=== PATIENT | male | born 1995 | race American Indian/Alaskan Native ===

== ENCOUNTER 2020-05-04 14:37 | Emergency (ER) | payer OTHER, SELFPAY ==
[2020-05-04 16:23] VITALS: BP 112/68; PULSE 77; RESP 18; TEMP 36.7; O2SAT 100; BMI 27.3
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
[2020-05-04 17:04] VITALS: BP 123/87; PULSE 82; RESP 20; TEMP 36.9; O2SAT 97
== END 2020-05-04 17:19 | disposition home or self-care (01) ==
PROVIDERS: Emergency Provider Emergency Medicine
DX: S39.012A Strain of muscle, fascia and tendon of lower back, initial encounter (principal); S16.1XXA Strain of muscle, fascia and tendon at neck level, initial encounter; V43.52XA Car driver injured in collision with other type car in traffic accident, initial encounter; Y93.89 Activity, other specified; Y92.414 Local residential or business street as the place of occurrence of the external cause; Y99.9 Unspecified external cause status
CPT/HCPCS: 99283

== ENCOUNTER 2022-09-26 16:13 | Emergency (ER) | payer MEDICAID, SELFPAY ==
[2022-09-26 16:41] VITALS: BP 121/76; PULSE 87; RESP 16; TEMP 37; O2SAT 99; BMI 28.3
--- NOTE | 2022-09-26 16:47 | ED_ITS ---
HPI - General Adult General Chief complaint: Skin/Abscess/Foreign Body <SRAVAN Hernandez - Last Filed: 09/26/22 16:49> Stated complaint: pain from crack.. to back, cyst? <SRAVAN Hernandez - Last Filed: 09/26/22 16:49> Time Seen by Provider: 09/26/22 20:00 <SRAVAN Hernandez - Last Filed: 09/26/22 16:49> Source: patient <SRAVAN Saeed - Last Filed: 09/26/22 20:28> Mode of arrival: ambulatory <SRAVAN Saeed - Last Filed: 09/26/22 20:28> Limitations: no limitations <SRAVAN Saeed - Last Filed: 09/26/22 20:28> History of Present Illness HPI narrative: This is a 27-year-old male presenting with pain between buttocks, times a week worsening. Patient reports he has a history of pilonidal cyst, he has had them drained multiple times in the past. He reports this 1 is very painful. He has not seen General surgery for this. Patient denies numbness, tingling, fevers, chills, chest pain, shortness of breath, headache, vision changes, dizziness and weakness. Not currently on antibiotics. <SRAVAN Saeed - Last Filed: 09/26/22 20:28> Related Data Home medications: Previous Rx's Medication Instructions Recorded Lidoderm 5 % topical patch 1 patch topical DAILY #1 ea 05/04/20 (lidocaine) cyclobenzaprine 10 mg tablet 10 mg PO TID PRN muscle spasm #10 05/04/20 tabs naproxen 500 mg tablet 500 mg PO BID PRN pain #20 tabs 05/04/20 cephalexin 500 mg tablet 500 mg PO Q6H 10 days #40 tabs 09/26/22 ketorolac 10 mg tablet 10 mg PO TID PRN pain 5 days #15 09/26/22 tabs <SRAVAN Hernandez - Last Filed: 09/26/22 16:49> Allergies/adverse reactions: Allergies Allergy/AdvReac Type Severity Reaction Status Date / Time No Known Allergies Allergy Verified 09/26/22 16:41 [No Known Allergies*] <SRAVAN Hernandez - Last Filed: 09/26/22 16:49> Review of Systems Review of Systems: Constitutional : No Weight loss, No Fever, No Chills, No Fatigue, No Malaise ENT/Mouth : No sore throat, No Rhinorrhea Eyes: No Eye Pain, No Swelling, No Redness Cardiovascular : No Chest Pain, No SOB, No Dyspnea on Exertion, No Orthopnea, No Edema, No Palpitations Respiratory : No Cough, No Sputum, No Wheezing Gastrointestinal : No Nausea, No Vomiting, No Diarrhea, No Constipation, No abdominal Pain, No Hematochezia, No Melena Genitourinary : No Dysuria, No Urinary Frequency, No Hematuria, Musculoskeletal : No joint pain, No Myalgias, No Joint Swelling Skin : No Skin Lesions, No rash, + abscess Neuro : No Weakness, No Numbness, No Dizziness, No Headache Psych : No Anxiety/Panic, No Depression All other systems reviewed and are negative <SRAVAN Saeed - Last Filed: 09/26/22 20:28> Yes all other systems are reviewed and are negative <SRAVAN Saeed - Last Filed: 09/26/22 20:28> PMFSH Past Medical History Attestation statement: The following information was validated with the patient. <SRAVAN Saeed - Last Filed: 09/26/22 20:28> Source: old records reviewed and nursing notes reviewed <SRAVAN Saeed - Last Filed: 09/26/22 20:28> Medical History: Medical History No known health problems <SRAVAN Hernandez - Last Filed: 09/26/22 16:49> Surgical History: Surgical History No history of previous surgery <SRAVAN Hernandez - Last Filed: 09/26/22 16:49> Social History Social History: Social History Advance Directives: No Advance Directives Information Provided: No <SRAVAN Hernandez - Last Filed: 09/26/22 16:49> Physical Exam ED Vital Signs: Vital Signs - 24 hr 09/26/22 16:41 Temperature 98.6 F Pulse Rate 87 Respiratory Rate 16 Blood Pressure 121/76 Pulse Oximetry 99 Oxygen Delivery Method Room Air BMI result Body Mass Index 28.3 <SRAVAN Henrandez - Last Filed: 09/26/22 16:49> Vital Signs - 24 hr 09/26/22 16:41 Temperature 98.6 F Pulse Rate 87 Respiratory Rate 16 Blood Pressure 121/76 Pulse Oximetry 99 Oxygen Delivery Method Room Air BMI result Body Mass Index 28.3 vss <SRAVAN Saeed Last Filed: 09/26/22 20:28> Appearance: Alert.? Oriented X3.? No acute distress.? Head: Normocephalic, atraumatic, no step-offs or deformities Eyes: Pupils equal, round and reactive to light.? ENT: Pharynx normal.? Neck: Normal inspection.? Neck supple.? CVS: Normal heart rate and rhythm.? Pulses normal.? Respiratory: No respiratory distress.? Breath sounds normal.? Abdomen: Soft and nontender.? Skin: Skin warm and dry.? Normal skin color.? Normal skin turgor.?+ 2cm X 2cm pilonidal cyst b/t buttocks w/ some fluctuance, erythema and warmth. Extremities: No lower extremity edema.? No calf ttp. 5/5 strength to bilateral upper and lower extremities Neuro: Oriented X 3.? No motor deficit.? No sensory deficit. CN 2-12 intact <SRAVAN Saeed Last Filed: 09/26/22 20:28> Course Course Course Narrative: RME performed by Tresa White PA-C. Patient is a 27 year old male presenting to the emergency department with a pilonidal abscess. Patient has had these multiple times and needs them drained every so often. Patient has not seen a general surgeon for these. Patient placed back in the waiting room pending room availability. <SRAVAN Hernandez Last Filed: 09/26/22 16:49> Reevaluation(s) Reevaluation #1: Fine-needle aspiration 5 cc of purulence/serosanguineous fluid removed successfully done at the bedside, patient tolerated procedure well. No complications. Dressing applied afterwards. Patient will be discharged home on Keflex. Will have him follow-up with General surgery. Educated patient on diagnosis and treatment plan, answered all question, patient verbalizes understanding. At this time patient will be discharged home, advised to return with new or worsening symptoms. Educated on worrisome signs and symptoms and when to return. At this time I feel comfortable discharge home. <SRAVAN Saeed - Last Filed: 09/26/22 20:28> Time: 20:04 <SRAVAN Saeed - Last Filed: 09/26/22 20:28> Medications Administered Discontinued Medications Generic Name Dose Route Start Last Admin Trade Name Freq PRN Reason Stop Dose Admin Ketorolac Tromethamine 30 mg 09/26/22 20:05 09/26/22 20:24 Ketorolac Tromethamine 15 Mg/Ml Vial IM 09/26/22 20:06 30 mg ONCE ONE Administration Lidocaine HCl 5 ml 09/26/22 20:00 09/26/22 20:24 Lidocaine Hcl 2 % Mpf 5 Ml Vial SUBCUT 09/26/22 20:01 5 ml ONCE ONE Administration <SRAVAN Hernandez - Last Filed: 09/26/22 16:49> Medications Administered Discontinued Medications Generic Name Dose Route Start Last Admin Trade Name Freq PRN Reason Stop Dose Admin Ketorolac Tromethamine 30 mg 09/26/22 20:05 09/26/22 20:24 Ketorolac Tromethamine 15 Mg/Ml Vial IM 09/26/22 20:06 30 mg ONCE ONE Administration Lidocaine HCl 5 ml 09/26/22 20:00 09/26/22 20:24 Lidocaine Hcl 2 % Mpf 5 Ml Vial SUBCUT 09/26/22 20:01 5 ml ONCE ONE Administration <SRAVAN Saeed - Last Filed: 09/26/22 20:28> Medical Decision Making Medical Decision Making [facility] Narrative: 2000 27-year-old male presents with recurrent pilonidal cyst worsening the past week. Physical examination significant for 2cm X 2cm pilonidal cyst b/t buttocks w/ some fluctuance, erythema and warmth. History and physical examination concerning for recurrent pilonidal cyst overlying cellulitis. Unlikely necrotizing infection, erysipelas. Plan fine-needle aspiration, will discharge patient home on antibiotics <SRAVAN Saeed - Last Filed: 09/26/22 20:28> Differential Diagnosis Differential Diagnoses: The differential diagnosis associated with the presentation includes <SRAVAN Saeed - Last Filed: 09/26/22 20:28> History and physical examination concerning for recurrent pilonidal cyst overlying cellulitis. Unlikely necrotizing infection, erysipelas. <SRAVAN Saeed - Last Filed: 09/26/22 20:28> Admission/Observation Consideration of admission/observation: Escalation of care including admission/observation considered <SRAVAN Saeed - Last Filed: 09/26/22 20:28> Core Measures AMI core measures followed: Yes <SRAVAN Saeed - Last Filed: 09/26/22 20:28> Measure exclusions: not indicated <SRAVAN Saeed - Last Filed: 09/26/22 20:28> Critical Care Time Critical Care Time Critical Care Time: No <SRAVAN Saeed - Last Filed: 09/26/22 20:28> Discharge Plan Discharge Clinical Impression: Pilonidal cyst, Cellulitis <SRAVAN Hernandez - Last Filed: 09/26/22 16:49> Patient Disposition: Home, Self-Care <SRAVAN Hernandez - Last Filed: 09/26/22 16:49> Instructions: Pilonidal Cyst (ED), Cellulitis (ED), Warm Compress or Soak (ED), Pilonidal Cyst Excision (DC) <SRAVAN Hernandez - Last Filed: 09/26/22 16:49> Additional Instructions: Take your medications as prescribed. If you were prescribed antibiotics today, it is important that you take your medication to their entirety, do not skip any doses, do not finish them early. Follow-up with your primary care provider this week. Please call and schedule an appointment with General surgery as this appears to be a recurrent process. Return to the emergency department with new or worsening symptoms. Such as fevers, chills, chest pain, shortness of breath, nausea, vomiting, dizziness, headache, vision changes, lethargy In case of emergency call 911 Apply warm compresses to the area 4 to 5 times a day. Toradol has been sent to your pharmacy, you tolerated this well in the department. Please take this as prescribed do not take this with ibuprofen, or other NSAIDs, do not mix this with alcohol. Side effects of this medication including increased risk for bleeding and possible kidney injury. <SRAVAN Hernandez - Last Filed: 09/26/22 16:49> Prescriptions: New cephalexin 500 mg tablet 500 mg PO Q6H 10 Days Qty: 40 0RF ketorolac 10 mg tablet 10 mg PO TID PRN (Reason: pain) 5 Days Qty: 15 0RF Rx Instructions: Tolerated IM in the department No Action cyclobenzaprine 10 mg tablet 10 mg PO TID PRN (Reason: muscle spasm) Qty: 10 0RF lidocaine [Lidoderm] 5 % adhesive patch,medicated 1 patch topical DAILY Qty: 1 0RF Rx Instructions: leave on most painful area for up to 12 hrs naproxen 500 mg tablet 500 mg PO BID PRN (Reason: pain) Qty: 20 0RF <SRAVAN Hernandez - Last Filed: 09/26/22 16:49> Referrals: [facility] General Surgeons [Provider Group] - 2 days Physician,None [Primary Care Provider] - 2 days <SRAVAN Hernandez - Last Filed: 09/26/22 16:49> Stand Alone Forms: Work/School Release <SRAVAN Hernandez - Last Filed: 09/26/22 16:49>
[2022-09-26] MEDS: Ketorolac Tromethamine 15 MG/ML VIAL 30 MG IM (20:24)
[2022-09-26] MEDS: Lidocaine HCl 2 % MPF 5 ML VIAL SUBCUT (20:24)
--- NOTE | 2022-09-26 20:25 | PC.NURSE ---
pt medicated by provider/PA student.
== END 2022-09-26 20:43 | disposition home or self-care (01) ==
PROVIDERS: Emergency Provider Emergency Medicine Emergency Medical Services
DX: L05.91 Pilonidal cyst without abscess (principal); Z79.899 Other long term (current) drug therapy
CPT/HCPCS: 10080; 96372; 99283; 99284; J1885

== ENCOUNTER 2023-01-14 13:23 | Emergency (ER) | payer MEDICAID, SELFPAY ==
[2023-01-14 14:14] VITALS: BP 117/70; PULSE 96; RESP 18; TEMP 37.8; O2SAT 96; BMI 26.5
--- NOTE | 2023-01-14 14:14 | ED_ITS ---
HPI - URI/Sore Throat General Chief Complaint: Fever Stated Complaint: fever, swollen throat Time Seen by Provider: 01/14/23 15:39 Source: patient, RN notes reviewed and old records reviewed Mode of arrival: ambulatory History of Present Illness HPI Narrative: 27-year-old male with no significant past medical history presenting to the ED complaining of fever, myalgias, nausea, and sore throat since yesterday. Admits girlfriend and daughter had similar symptoms. Denies ear pain, difficulty/inability to swallow, cough, SOB MD elicited complaint: sore throat Related Data Previous Rx's Medication Instructions Recorded Lidoderm 5 % topical patch 1 patch topical DAILY #1 ea 05/04/20 (lidocaine) cyclobenzaprine 10 mg tablet 10 mg PO TID PRN muscle spasm #10 05/04/20 tabs naproxen 500 mg tablet 500 mg PO BID PRN pain #20 tabs 05/04/20 cephalexin 500 mg tablet 500 mg PO Q6H 10 days #40 tabs 09/26/22 ketorolac 10 mg tablet 10 mg PO TID PRN pain 5 days #15 09/26/22 tabs penicillin V potassium 500 mg 500 mg PO BID 10 days #20 tabs 01/14/23 tablet Allergies Allergy/AdvReac Type Severity Reaction Status Date / Time No Known Allergies Allergy Verified 09/26/22 16:41 [No Known Allergies*] Review of Systems Review of Systems: Constitutional: +Fever, No Chills ENT/Mouth: No Ear Pain, No Nasal Congestion, No Sinus Pain, No Hoarseness, + sore throat, No Rhinorrhea, No Swallowing Difficulty Cardiovascular: No Chest Pain, No SOB Respiratory: No Cough, No Sputum, No Wheezing Gastrointestinal: + Nausea, No Vomiting, No Diarrhea, No Constipation, No Abdominal pain Musculoskeletal: No joint pain, + Myalgias, No Joint Swelling Skin: No Skin Lesions, No rash Neuro: No Weakness Yes all other systems are reviewed and are negative Constitutional: Constitutional: Reports as per [facility] Past Medical History Attestation statement: The following information was validated with the patient. Source: old records reviewed Medical History No known health problems Surgical History No history of previous surgery Social History Social History Advance Directives: No Advance Directives Information Provided: No Physical Exam Vital Signs: Vital Signs: Last Vital Signs Temp 100.1 F 01/14/23 14:14 Pulse 96 01/14/23 14:14 Resp 18 01/14/23 14:14 BP 117/70 01/14/23 14:14 Pulse Ox 96 01/14/23 14:14 O2 Del Method Room Air 01/14/23 14:14 BMI result Body Mass Index 26.5 Appearance: Alert. Oriented X3. No acute distress. HEENT: normal inspection Respiratory: No respiratory distress. Skin: Skin warm and dry. Normal skin color. Normal skin turgor. No rashes. Extremities: Neuro: Oriented X 3. No motor deficit. No sensory deficit. Const: General: cooperative, healthy appearing and no acute distress Orientation/consciousness: patient oriented x3 Limitations: no limitations HEENT: Head: Yes normal to inspection and Yes atraumatic Ears: hearing grossly normal bilaterally, external ears normal, TM's normal bilaterally and mastoids normal General nose exam: Normal external nose present Face and sinus: Yes normal facial exam Throat: Yes uvula midline, Yes abnormal tonsil (+ bilateral tonsillar erythema, swelling and exudates), No peritonsillar mass, No uvula laterally displaced and No uvular edema Eyes: General: appearance normal, both eyes and all related structures EOM: EOMs intact bilaterally Neck: Neck: Yes normal visual inspection, Yes full ROM, Yes no meningeal signs, Yes supple and No anterior neck swelling Resp: Effort & Inspection: normal respiratory effort, no respiratory distress and no stridor Auscultation: clear to auscultation bilaterally Cardio: Rate: regular rate Heart sounds: S1 normal heart sound present and S2 normal heart sound present Skin: Rashes: no rashes Wounds: no wounds Neuro: General: patient oriented x3, tone normal and no meningeal signs Gait exam (Neuro): Normal gait present Extrem: General: Yes normal to inspection Course Course Course Narrative: RME - 27 yo male presents to the ER for fever, nausea, and body aches. He states that his girlfriend had similar symptoms and was prescribed antibiotics. Plan: Covid and Strep -rapid strep positive Results discussed with patient including worrisome signs and symptoms and strict return precautions, and when to return to the emergency department. They verbalized understanding and feel safe for discharge at this time. Medical Decision Making Medical Decision Making [facility] Narrative: 27-year-old male with no significant past medical history presenting to the ED complaining of fever, myalgias, nausea, and sore throat since yesterday. On exam vital signs stable, NAD, nontoxic appearing, physical exam as above with bilateral tonsillar erythema with exudate and swelling. Uvula midline. Talking in complete sentences, no stridor. Concern for strep pharyngitis versus viral illness. Lower suspicion for mono. No evidence of [employer] Plan: COVID and rapid strep Please refer to course for remaining clinical decision making, interpretation of labs/imaging results, and discussions with consultants and/or family members. Differential Diagnosis Differential Diagnoses: The differential diagnosis associated with the presentation includes As above Admission/Observation Consideration of admission/observation: Escalation of care including admission/observation considered Lab Data [facility] Lab Attestation statement: I reviewed the patient's lab results. Labs: Lab Results 01/14/23 01/14/23 Range/Units 14:49 14:49 COVID-19 ([facility]) Negative (Negative) COVID-19 Clin Com See Note S. pyogenes GrpA LORY Positive A (Negative) External Record Review External record reviewed: Inpatient record, Office record, Outpatient record, Prior outpatient labs, Prior outpatient radiology, Primary care record and Outside ED record Tests considered The following testing was considered but not selected: As above Discharge Plan Discharge Clinical Impression: Acute streptococcal pharyngitis Patient Disposition: Home, Self-Care Instructions: Strep Throat (DC) Additional Instructions: You have strep throat. Gargle with warm saltwater Penicillin V is an antibiotic please take as prescribed Take Tylenol and Motrin for swelling/pain or fever If symptoms persist or worsen you develop persistent or worsening swelling or difficulty/inability to swallow return to the ED Prescriptions: New penicillin V potassium 500 mg tablet 500 mg PO BID 10 Days Qty: 20 0RF No Action cyclobenzaprine 10 mg tablet 10 mg PO TID PRN (Reason: muscle spasm) Qty: 10 0RF lidocaine [Lidoderm] 5 % adhesive patch,medicated 1 patch topical DAILY Qty: 1 0RF Rx Instructions: leave on most painful area for up to 12 hrs naproxen 500 mg tablet 500 mg PO BID PRN (Reason: pain) Qty: 20 0RF cephalexin 500 mg tablet 500 mg PO Q6H 10 Days Qty: 40 0RF ketorolac 10 mg tablet 10 mg PO TID PRN (Reason: pain) 5 Days Qty: 15 0RF Rx Instructions: Tolerated IM in the department Referrals: Physician,Unknown J [Primary Care Provider] - Stand Alone Forms: Work/School Release Interventions: ED Discharge Assessment Last Done: 01/14/23 16:20 Discharge Date/Time: 01/14/23 16:20
[2023-01-14 15:04] LABS: IDNOW Serial# 08D9AD1C
[2023-01-14 15:05] LABS: Strep A Nucleic Acid Positive (Negative)
[2023-01-14 15:07] LABS: IDNOW Serial# BCCEAD1C
[2023-01-14 15:08] LABS: COVID-19 Test Negative (Negative)
== END 2023-01-14 16:20 | disposition home or self-care (01) ==
PROVIDERS: Physician Assistant; Emergency Provider Emergency Medicine
DX: J02.0 Streptococcal pharyngitis (principal); R50.9 Fever, unspecified; J02.9 Acute pharyngitis, unspecified; R11.0 Nausea; M79.10 Myalgia, unspecified site; Z20.822 Contact with and (suspected) exposure to COVID-19
CPT/HCPCS: 87635; 87651; 99282; 99283

== ENCOUNTER 2024-02-08 09:51 | Emergency (ER) | payer OTHER, SELFPAY ==
[2024-02-08 09:58] VITALS: BP 120/72; PULSE 88; RESP 18; TEMP 36.7; O2SAT 100; BMI 25.1
--- NOTE | 2024-02-08 10:09 | ED_ITS ---
HPI - Dental/Oral General Chief complaint: Dental/Oral Stated complaint: Dental pain Time Seen by Provider: 02/08/24 10:09 Source: patient and RN notes reviewed Mode of arrival: ambulatory Limitations: no limitations History of Present Illness ED Provider: Aleyda Henriquez PA-C HPI Narrative: This is a 28-year-old male, with no known medical problems, who presents emergency department with complaints of left-sided facial pain and dental pain. He states that he has had ongoing left-sided dental pain for the last several months, states that his wisdom teeth are growing in however notes that over the last several days the pain has increased. He applied topical in his that it that he found at the pharmacy to the tooth which provided him with some relief. No fevers or chills. No difficulty swallowing. No shortness a breath. He has a dental appointment scheduled for March. No other complaints or concerns at this time. MD Complaint: tooth pain and tooth injury Location: Tooth # (18) Teeth map: 2 1. Onset (ago): month(s) Duration: worsening Severity: moderate Relieving factors: NSAIDs Exacerbating factors: chewing Context: history of dental caries Treatment prior to arrival: topical analgesic Related Data Previous Rx's ?Medication ?Instructions ?Recorded Lidoderm 5 % topical patch 1 patch topical DAILY #1 ea 05/04/20 (lidocaine) cyclobenzaprine 10 mg tablet 10 mg PO TID PRN muscle spasm #10 05/04/20 tabs naproxen 500 mg tablet 500 mg PO BID PRN pain #20 tabs 05/04/20 cephalexin 500 mg tablet 500 mg PO Q6H 10 days #40 tabs 09/26/22 ketorolac 10 mg tablet 10 mg PO TID PRN pain 5 days #15 09/26/22 tabs penicillin V potassium 500 mg 500 mg PO BID 10 days #20 tabs 01/14/23 tablet acetaminophen 500 mg tablet 500 mg PO Q6H PRN pain #30 tabs 02/08/24 (Tylenol Extra Strength) amoxicillin 875 mg-potassium 1 tab PO BID 7 days #14 tabs 02/08/24 clavulanate 125 mg tablet ibuprofen 600 mg tablet 600 mg PO Q6H PRN pain #30 tabs 02/08/24 Allergies Allergy/AdvReac Type Severity Reaction Status Date / Time No Known Allergies Allergy Verified 02/08/24 10:01 [No Known Allergies*] Review of Systems 2 Review of Systems: Yes all other systems are reviewed and are negative Constitutional: Constitutional: Reports as per [facility] Past Medical History Attestation statement: The following information was validated with the patient. Medical History No known health problems Surgical History No history of previous surgery Physical Exam 2 Vital Signs: Vital Signs: Last Vital Signs Temp 98.0 F 02/08/24 09:58 Pulse 88 02/08/24 09:58 Resp 18 02/08/24 09:58 BP 120/72 02/08/24 09:58 Pulse Ox 100 02/08/24 09:58 O2 Del Method Room Air 02/08/24 09:58 BMI result Body Mass Index 25.1 Const: General: cooperative, comfortable and no acute distress O rientation/consciousness: patient oriented x3 Limitations: no limitations HEENT: Head: Yes normal to inspection, Yes normocephalic and Yes atraumatic Ears: hearing grossly normal bilaterally and TM's normal bilaterally General nose exam: Normal external nose present Face and sinus: Yes normal facial exam Mouth: Normal oral and palatal mucosa present, oropharynx normal and moist mucous membranes Teeth image: 1. Tooth 18., with dental decay noted, with tenderness palpation along the tooth, no surrounding gingival erythema, edema, fluctuance. No drainage. Throat: Yes posterior oropharynx normal Eyes: General: appearance normal, both eyes and all related structures E yelids: Yes eyelids normal Conjunctivae: conjunctivae normal Sclerae: s clerae normal Pupils: Equal, round and reactive pupils present EOM: EOMs intact bilaterally Neck: Neck: Yes normal visual inspection, Yes full ROM and Yes no lymphadenopathy Lymphatic: no lymphadenopathy noted Chest: Chest palpation & inspection: normal inspection of the chest Resp: Effort & Inspection: normal respiratory effort and able to speak in complete sentences Auscultation: clear to auscultation bilaterally, no crackles, no rales, no rhonchi and no wheezes Cardio: Rate: regular rate Rhythm: regular rhythm Heart sounds: S1 normal heart sound present and S2 normal heart sound present GI: Inspection: Yes normal to inspection Skin: General skin exam: no rashes or lesions noted Trauma: no lacerations or abrasions Wounds: no wounds Neuro: General: patient oriented x3 and moves all extremities Cranial nerves: Yes Equal, round and reactive pupils present Extrem: General: Yes normal to inspection Right upper extremity: normal to inspection Left upper extremity: normal to inspection Right lower extremity: normal to inspection Left lower extremity: normal to inspection Medical Decision Making Medical Decision Making [facility] Narrative: This is a 28-year-old male who presents emergency department with complaints of left-sided facial pain and dental pain for the last several days. On arrival, vital signs within normal limits. He is tenderness palpation along tooth 18. No surrounding gingival erythema or edema. No fluctuance. No evidence of dental abscess. Able to open and close jaw without difficulty. No difficulty swallowing. Differential diagnoses include dental abscess, dental decay, dental fracture. Will start antibiotics, ibuprofen and Tylenol. Advised to return with any new or worsening symptoms. He will follow-up with his dentist for further management. He understands and agrees with plan. Patient stable for discharge Differential Diagnosis Differential Diagnoses: The differential diagnosis associated with the presentation includes See above Lab Data [facility] Lab Attestation statement: I reviewed the patient's lab results. Radiology Impression Discussion of test interpretation with radiology: I have reviewed the radiologist's reading. External Record Review External record reviewed: Inpatient record, Office record, Outpatient record, Prior outpatient labs, Prior outpatient radiology, Primary care record and Outside ED record Discharge Plan Discharge Clinical Impression: Toothache Patient Disposition: Home, Self-Care Instructions: Toothache (ED) Additional Instructions: You were seen in the emergency department due to dental pain. Your tooth is broken, and may start to be infected, it is very important for you to follow-up with your dentist. And placing you on an antibiotic, finish the entire course even if your feeling better. Alternate between ibuprofen and Tylenol as needed for pain and symptoms. If any new or worsening symptoms occur including but not limited to fevers, chills, worsening pain, please return for evaluation. Prescriptions: New amoxicillin-pot clavulanate 875-125 mg tablet 1 tab PO BID 7 Days Qty: 14 0RF ibuprofen 600 mg tablet 600 mg PO Q6H PRN (Reason: pain) Qty: 30 0RF acetaminophen [Tylenol Extra Strength] 500 mg tablet 500 mg PO Q6H PRN (Reason: pain) Qty: 30 0RF No Action cyclobenzaprine 10 mg tablet 10 mg PO TID PRN (Reason: muscle spasm) Qty: 10 0RF lidocaine [Lidoderm] 5 % adhesive patch,medicated 1 patch topical DAILY Qty: 1 0RF Rx Instructions: leave on most painful area for up to 12 hrs naproxen 500 mg tablet 500 mg PO BID PRN (Reason: pain) Qty: 20 0RF cephalexin 500 mg tablet 500 mg PO Q6H 10 Days Qty: 40 0RF ketorolac 10 mg tablet 10 mg PO TID PRN (Reason: pain) 5 Days Qty: 15 0RF Rx Instructions: Tolerated IM in the department penicillin V potassium 500 mg tablet 500 mg PO BID 10 Days Qty: 20 0RF Print Language: Italian
[2024-02-08 10:32] VITALS: BP 120/72; PULSE 88; RESP 18; TEMP 36.7; O2SAT 100
== END 2024-02-08 10:32 | disposition home or self-care (01) ==
PROVIDERS: Emergency Provider Emergency Medicine
DX: K02.9 Dental caries, unspecified (principal)
CPT/HCPCS: 99282; 99283

== ENCOUNTER 2024-10-29 20:03 | Emergency (ER) | payer MEDICAID, SELFPAY ==
[2024-10-29 20:30] VITALS: BP 122/75; PULSE 74; RESP 16; TEMP 36.9; O2SAT 98; BMI 25.2
--- NOTE | 2024-10-29 20:32 | ED.GENADULT ---
HPI - General Adult General Chief complaint: Dental/Oral Stated complaint: tooth pain Time Seen by Provider: 10/29/24 20:33 Source: patient History of Present Illness HPI narrative: 29-year-old male presents for evaluation of complaining of left-sided dental pain. Patient states he was eating pork, raised and beans when it began to cause him pain. He has had a broken area previously. He reports placing a packing to the broken area of the tooth for discomfort. He has been taking ibuprofen with some relief. He denies any fevers chills nausea or vomiting. He has an appointment with his dentist on Thursday. Patient is otherwise feeling well. He has been eating and drinking normally. Related Data Previous Rx's ?Medication ?Instructions ?Recorded Lidoderm 5 % topical patch 1 patch topical DAILY #1 ea 05/04/20 (lidocaine) cyclobenzaprine 10 mg tablet 10 mg PO TID PRN muscle spasm #10 05/04/20 tabs acetaminophen 500 mg tablet 500 mg PO Q6H PRN pain #30 tabs 02/08/24 (Tylenol Extra Strength) ibuprofen 600 mg tablet 600 mg PO Q6H PRN pain #30 tabs 02/08/24 amoxicillin 875 mg-potassium 1 tab PO BID 7 days #14 tabs 10/29/24 clavulanate 125 mg tablet Allergies Allergy/AdvReac Type Severity Reaction Status Date / Time No Known Allergies Allergy Verified 10/29/24 20:31 [No Known Allergies*] Review of Systems ENT: Reports dental pain and Denies facial pain PMFSH Past Medical History Medical History No known health problems Surgical History No history of previous surgery Social History Social History Do you have a plan to hurt others: No Plan Physical Exam ED Vital Signs: Vital Signs - 24 hr 10/29/24 20:30 Temperature 98.5 F Pulse Rate 74 Respiratory Rate 16 Blood Pressure 122/75 Pulse Oximetry 98 Oxygen Delivery Method Room Air BMI result Body Mass Index 25.2 Const Other: Well-appearing in no acute distress. Speaks full clear sentences. HENMT Other: Oropharynx is moist. Teeth are in good repair. Tooth number 18 is partially broken on the buccal aspect. There is a whitish packing in place. There is no periapical erythema or edema. Full range motion of the mandible. No tongue edema or muffled voice. Tolerate secretions. Neck Other: No cervical lymphadenopathy Psych Appearance: grossly normal Medical Decision Making Medical Decision Making [facility] Narrative: 29-year-old male with pain to the left lower tooth. We will place on antibiotics. Patient to follow up with dentist at current appointment on Thursday. Reviewed all discharge instructions. No further questions at this time. Of note, it is is left lower tooth, number 18, despite triage note of left upper. No tenderness or current issues with any other dentition. Differential Diagnosis Differential Diagnoses: The differential diagnosis associated with the presentation includes Dental abscess Dental caries Broken dentition Dental infection Prescription Management I considered prescription management with: Antibiotic Discharge Plan Discharge Clinical Impression: Toothache, Dental caries Patient Disposition: Home, Self-Care Instructions: Toothache (ED) Additional Instructions: As discussed, Continue Tylenol and ibuprofen as directed. Take with food. Augmentin as directed. Finish all antibiotics. Follow up with your dentist at your current appointment on Thursday. Follow-up with your primary care provider. Call this week to schedule a follow-up appointment. Return to the emergency department if you have any worsening of symptoms, or any concerns. Get well soon! Prescriptions: New amoxicillin-pot clavulanate 875-125 mg tablet 1 tab PO BID 7 Days Qty: 14 0RF Discontinued naproxen 500 mg tablet 500 mg PO BID PRN (Reason: pain) Qty: 20 0RF cephalexin 500 mg tablet 500 mg PO Q6H 10 Days Qty: 40 0RF ketorolac 10 mg tablet 10 mg PO TID PRN (Reason: pain) 5 Days Qty: 15 0RF Rx Instructions: Tolerated IM in the department penicillin V potassium 500 mg tablet 500 mg PO BID 10 Days Qty: 20 0RF amoxicillin-pot clavulanate 875-125 mg tablet 1 tab PO BID 7 Days Qty: 14 0RF No Action cyclobenzaprine 10 mg tablet 10 mg PO TID PRN (Reason: muscle spasm) Qty: 10 0RF lidocaine [Lidoderm] 5 % adhesive patch,medicated 1 patch topical DAILY Qty: 1 0RF Rx Instructions: leave on most painful area for up to 12 hrs ibuprofen 600 mg tablet 600 mg PO Q6H PRN (Reason: pain) Qty: 30 0RF acetaminophen [Tylenol Extra Strength] 500 mg tablet 500 mg PO Q6H PRN (Reason: pain) Qty: 30 0RF Print Language: Portuguese
[2024-10-29 20:46] VITALS: BP 122/75; PULSE 74; RESP 16; TEMP 36.9; O2SAT 98
== END 2024-10-29 20:48 | disposition home or self-care (01) ==
PROVIDERS: Emergency Provider Emergency Medicine
DX: K02.9 Dental caries, unspecified (principal); K08.89 Other specified disorders of teeth and supporting structures
CPT/HCPCS: 99283

== ENCOUNTER 2024-11-02 17:24 | Emergency (ER) | payer MEDICAID, SELFPAY ==
--- NOTE | ~2024-11-02 | CT_ITS ---
CLINICAL HISTORY: unable to open mouth, L lower dental pain CT soft tissue neck with contrast Comparison: None Findings: Tonsils, adenoids and epiglottis are within normal limits. There is no prevertebral soft tissue swelling or fluid. Bilateral parotid and submandibular glands unremarkable. No significant adenopathy in the neck by size criteria. Airway midline without deviation or displacement. No foreign bodies are demonstrated. Visualized upper lungs and sinuses are clear. No acute bony abnormalities demonstrated. Impression: No significant abnormalities. This document has been electronically signed by: Gagan Guillory MD on 11/02/2024 21:29:58
[2024-11-02 17:47] VITALS: BP 132/84; PULSE 100; RESP 16; TEMP 37.5; O2SAT 98; BMI 25.0
--- NOTE | 2024-11-02 17:48 | ED_ITS ---
HPI - Dental/Oral General Chief complaint: Dental/Oral Stated complaint: tooth pain Time Seen by Provider: 11/02/24 22:23 Source: patient Mode of arrival: ambulatory Limitations: no limitations History of Present Illness ED Provider: HPI Narrative: Patient has been having pain in the left lower molar plan to see dentist for a root canal next week on antibiotics Augmentin and pain medication was seen here on 10/29 comes back as having pain in opening the mouth no fever no chills Related Data Previous Rx's ?Medication ?Instructions ?Recorded Lidoderm 5 % topical patch 1 patch topical DAILY #1 ea 05/04/20 (lidocaine) cyclobenzaprine 10 mg tablet 10 mg PO TID PRN muscle spasm #10 05/04/20 tabs acetaminophen 500 mg tablet 500 mg PO Q6H PRN pain #30 tabs 02/08/24 (Tylenol Extra Strength) ibuprofen 600 mg tablet 600 mg PO Q6H PRN pain #30 tabs 02/08/24 amoxicillin 875 mg-potassium 1 tab PO BID 7 days #14 tabs 10/29/24 clavulanate 125 mg tablet oxycodone 5 mg tablet 5 mg PO Q6H PRN pain #20 tabs 11/03/24 Allergies Allergy/AdvReac Type Severity Reaction Status Date / Time No Known Allergies Allergy Verified 11/02/24 17:50 [No Known Allergies*] Review of Systems 2 Review of Systems: Yes all other systems are reviewed and are negative PMFSH Past Medical History Medical History No known health problems Surgical History No history of previous surgery Social History Social History Alcohol intake: never Advance Directives: No Advance Directives Information Provided: Yes Physical Exam 2 Vital Signs: Vital Signs: Last Vital Signs Temp 99.5 F 11/03/24 00:20 Pulse 88 11/03/24 00:20 Resp 16 11/03/24 00:20 BP 112/66 11/03/24 00:20 Pulse Ox 98 11/03/24 00:20 O2 Del Method Room Air 11/03/24 00:20 BMI result Body Mass Index 25.0 Appearance: Alert. Oriented X3. No acute distress. ENT: Pharynx normal. Oral Mucosa moist no gum swelling masseter spasm was present no swelling of the tongue no swelling under the tongue nontender Neck: Normal inspection. Neck supple. CVS: Normal heart rate and rhythm. Pulses normal. Respiratory: No respiratory distress. Equal air entry bilateral, no wheezing/rales/rhonchi Abdomen: Soft and nontender. Bowel sounds are present, no mass palpable, no CVA tenderness Skin: Skin warm and dry. Normal skin color. Normal skin turgor. Extremities: No lower extremity edema. No calf tenderness Neuro: Oriented X 3. No motor deficit. Course Course Course Narrative: This is an RME: Additional HPI, ROS, PE not included below will be deferred to primary provider. RME assessment and note performed by: Aleyda Henriquez PA-C This is a 29-year-old male who presents emergency department with complaints of left lower dental pain. Patient unable to open his jaw has 2 mm. No obvious dental abscess noted however dental decay noted to the left lower dentition. Reports no fevers. Will start with labs, he will likely need diagnostic imaging however will defer to primary provider for further analysis and evaluation. He was seen on October 29, 2024 and was started on Augmentin which he has been taking without any relief. Plan: labs, further ER eval needed Medications Administered Discontinued Medications Generic Name Dose Route Start Last Admin Trade Name Freq PRN Reason Stop Dose Admin Iohexol 75 ml 11/02/24 20:38 11/02/24 20:39 Iohexol 350 Mg/Ml 100 Ml Infus..Btl IV 11/02/24 20:39 75 ml ONCE ONE Administration Ketorolac Tromethamine 30 mg 11/02/24 22:50 11/02/24 22:58 Ketorolac Tromethamine 30 Mg/Ml Vial IVPUSH 11/02/24 22:51 30 mg ONCE ONE Administration Morphine Sulfate 4 mg 11/02/24 22:51 11/02/24 22:58 Morphine Sulfate 4 Mg/Ml Cartridge IVPUSH 11/02/24 22:52 4 mg ONCE ONE Administration Protocol Medical Decision Making Medical Decision Making MDM Narrative: Patient with dental caries on antibiotics no signs of deeper infection CT scan of the neck was done which is also negative for any fluid collection or abscess patient was given pain medication was able to over the mouth and had fluids in the ER Differential Diagnosis Differential Diagnoses: The differential diagnosis associated with the presentation includes Trismus/abscess Lab Data [facility] Lab Attestation statement: I reviewed the patient's lab results. 11/02/24 19:47 11/02/24 19:47 Labs: Lab Results 11/02/24 Range/Units 19:47 WBC 8.8 (4.8-10.8) X10*3/uL RBC 4.86 (4.60-5.80) X10*6/uL Hgb 15.0 (14.0-18.0) g/dl Hct 43.4 (42.0-52.0) % MCV 89.3 (80.0-98.0) fL MCH 30.9 (27.0-33.0) pg MCHC 34.6 (31.0-36.0) g/dl RDW 11.5 (11.0-16.0) % Plt Count 366 (160-400) X10*3/uL MPV 9.8 (9.4-12.4) fL Immature Gran % (Auto) 0.2 (0.0-0.4) % Neut % (Auto) 75.7 H (45-73) % Lymph % (Auto) 15.7 L (20-40) % [place] % (Auto) 7.8 (2-11) % Eos % (Auto) 0.3 (0-4) % Baso % (Auto) 0.3 (0-2) % Lymph # (Auto) 1.4 (1.2-4.9) X10*3/uL [place] # (Auto) 0.7 (0.1-1.2) X10*3/uL Eos # (Auto) 0.0 (0.0-0.4) X10*3/uL Baso # (Auto) 0.0 (0.0-0.2) X10*3/uL Abs Immat Gran (auto) 0.02 (0.00-0.03) X10*3/uL Absolute Neuts (auto) 6.6 (2.0-8.3) x10*3/uL Absolute Nucleated RBC 0.000 (0.0-0.012) X10*3/uL Nucleated RBC % (auto) 0.0 (0.0-0.2) /100WBC Sodium 140 (135-145) mmol/L Potassium 4.8 (3.3-5.1) mmol/L Chloride 106 (96-108) mmol/L Carbon Dioxide 26 (22-29) mmol/L Anion Gap 13 (12-20) BUN 8 L (9-16) mg/dL Creatinine 0.58 (0.5-1.4) mg/dL Estim Creat Clear Calc 163.4 Estimated GFR > 60 Random Glucose 95 (60-115) mg/dL Calcium 10.4 H (8.4-10.2) mg/dL Total Bilirubin 1.0 (0.0-1.0) mg/dL Direct Bilirubin 0.3 (0.0-0.5) mg/dL AST 27 (5-37) U/L ALT 34 (0-40) U/L Alkaline Phosphatase 84 (39-117) U/L Total Protein 8.2 H (6.5-8.0) g/dL Albumin 4.5 (3.5-5.0) g/dL Radiology Impression Discussion of test interpretation with radiology: I have reviewed the radiologist's reading. Radiologist Impression: NAD Discharge Plan Discharge Clinical Impression: Toothache Patient Disposition: Home, Self-Care Instructions: Toothache (ED) Additional Instructions: Follow up with your dentist Continue antibiotics Your CT scan is negative for deeper abscess Apply ice pack for the muscle spasm Pain medication as prescribed Prescriptions: New oxycodone 5 mg tablet 5 mg PO Q6H PRN (Reason: pain) Qty: 20 0RF Rx Instructions: Partial Fill upon patient request. No Action cyclobenzaprine 10 mg tablet 10 mg PO TID PRN (Reason: muscle spasm) Qty: 10 0RF lidocaine [Lidoderm] 5 % adhesive patch,medicated 1 patch topical DAILY Qty: 1 0RF Rx Instructions: leave on most painful area for up to 12 hrs amoxicillin-pot clavulanate 875-125 mg tablet 1 tab PO BID 7 Days Qty: 14 0RF ibuprofen 600 mg tablet 600 mg PO Q6H PRN (Reason: pain) Qty: 30 0RF acetaminophen [Tylenol Extra Strength] 500 mg tablet 500 mg PO Q6H PRN (Reason: pain) Qty: 30 0RF Interventions: ED Discharge Assessment Last Done: 11/03/24 00:20 Discharge Date/Time: 11/03/24 00:21 Print Language: Maori
[2024-11-02 19:52] VITALS: BP 119/73; PULSE 80; RESP 16; TEMP 38.3; O2SAT 98
[2024-11-02 19:58] LABS: MANUAL DIFF FLAG NO
[2024-11-02 19:59] LABS: Basophils Percent Auto 0.3 % (0-2); Eosinophils Percent Auto 0.3 % (0-4); Hematocrit 43.4 % (42.0-52.0); Imm Gran Abs Auto 0.02 X10*3/uL (0.00-0.03); Imm Gran Pct Auto 0.2 % (0.0-0.4); Lymphocytes Absolute Auto 1.4 X10*3/uL (1.2-4.9); Lymphocytes Percent Auto 15.7 % (20-40); Mean Corpuscular HGB Conc 34.6 g/dl (31.0-36.0); Mean Corpuscular Hemoglobin 30.9 pg (27.0-33.0); Mean Corpuscular Volume 89.3 fL (80.0-98.0); Mean Platelet Volume 9.8 fL (9.4-12.4); Monocytes Absolute Auto 0.7 X10*3/uL (0.1-1.2); Monocytes Percent Auto 7.8 % (2-11); Neutrophils Absolute Auto 6.6 x10*3/uL (2.0-8.3); Neutrophils Percent Auto 75.7 % (45-73); Platelet Count 366 X10*3/uL (160-400); Red Blood Count 4.86 X10*6/uL (4.60-5.80); Red Cell Distribution Width 11.5 % (11.0-16.0); White Blood Count 8.8 X10*3/uL (4.8-10.8)
[2024-11-02 20:14] LABS: Alanine Aminotransferase 34 U/L (0-40); Albumin Level 4.5 g/dL (3.5-5.0); Alkaline Phosphatase 84 U/L (39-117); Anion Gap 13 (12-20); Aspartate Amino Transferase 27 U/L (5-37); Bilirubin Direct 0.3 mg/dL (0.0-0.5); Blood Urea Nitrogen 8 mg/dL (9-16); Calcium 10.4 mg/dL (8.4-10.2); Carbon Dioxide 26 mmol/L (22-29); Chloride 106 mmol/L (96-108); Creatinine Clr Calc Pharmacy 163.4; Estimated Glomerular Filt Rate > 60; Glucose Random 95 mg/dL (60-115); Potassium 4.8 mmol/L (3.3-5.1); Sodium 140 mmol/L (135-145); Total Protein 8.2 g/dL (6.5-8.0)
[2024-11-02] MEDS: iohexoL 350 MG/ML 100 ML INFUS..BTL 75 ML IV (20:39)
[2024-11-02 22:57] VITALS: BP 124/77; PULSE 89; RESP 16; TEMP 36.9; O2SAT 98
[2024-11-02] MEDS: Ketorolac Tromethamine 30 MG/ML VIAL IVPUSH (22:58)
[2024-11-02] MEDS: Morphine Sulfate 4 MG/ML CARTRIDGE IVPUSH (22:58)
[2024-11-03 00:20] VITALS: BP 112/66; PULSE 88; RESP 16; TEMP 37.5; O2SAT 98
== END 2024-11-03 00:21 | disposition home or self-care (01) ==
PROVIDERS: Physician Assistant Medical; Emergency Provider Internal Medicine
DX: K08.89 Other specified disorders of teeth and supporting structures (principal); R68.84 Jaw pain
CPT/HCPCS: 36415; 70491; 80048; 80076; 85025; 96374; 96375; 99284; J1885; J2270; Q9967

== ENCOUNTER → 2024-11-02 19:49 | Outpatient (BNV) | payer MEDICAID, SELFPAY | PROVIDERS: Visit Provider Radiology Diagnostic Radiology | DX: M26.52 Limited mandibular range of motion (principal); K08.89 Other specified disorders of teeth and supporting structures | CPT/HCPCS: 70491 ==

== ENCOUNTER 2024-11-17 09:49 | Emergency (ER) | payer MEDICAID, SELFPAY ==
--- NOTE | ~2024-11-17 | CT_ITS ---
EXAMINATION: CT FACIAL BONES WITHOUT CONTRAST CLINICAL INFORMATION: Left mandibular and temporomandibular joint pain, locked mouth. COMPARISON: None available. TECHNIQUE: Spiral CT imaging of the maxillofacial region and mandible performed in axial plane without contrast. Multiplanar reformatted images were constructed from the axial data set. This CT examination was performed using dose optimization techniques as appropriate, variously including the following: *Automated exposure control *Adjustment of mA and/or kV according to patient size (this includes techniques or standardized protocols for targeted exams where dose is matched to indication/reason for exam; i.e. extremities or head) *Use of iterative reconstruction technique FINDINGS: Evaluation for soft tissue subperiosteal abscess in the setting of suspected dental origin cellulitis is significantly limited. The TM joints are normally oriented. No dislocation or subluxation. 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 The nasal bones, nasal process, maxilla, orbits, zygomatic arches, pterygoid plates, and sphenoid bone are intact without fracture. There is mild right nasal septal deviation without spurring. Paranasal sinuses are normally pneumatized throughout. No paranasal sinus fractures. The mastoids and tympanic cavities are normally aerated. Within the left mandible, there is periapical lucency surrounding the root tips of tooth #18, with 9 mm erosion of the buccal cortex (series 8, image 66; series 2, image 63). The director of construction spaces demonstrate mild enlargement of the left pterygoid musculature, likely reflecting myositis. There is a prominent left level 2A lymph node present (series 3, image 43), with mild thickening of the left platysma muscle, and mild subcutaneous fat stranding/inflammation. Findings suggest dental source infection. Cannot assess for subperiosteal abscess without the benefit of IV contrast. CT/CT facial bones wo IV con IMPRESSION: 1. There is no dislocation or malalignment of the TM joints. 2. There is soft tissue inflammation of the left submandibular region with thickening of the platysma, a reactive level 2A lymph node, and enlargement of the left pterygoid muscle. This appears to be secondary to a 9 mm buccal cortex erosion/periapical lucency involving tooth #18. There are also carious lesions in this tooth. Cannot assess for subperiosteal abscess without the benefit of IV contrast. Electronically signed by: Mainor Bourgeois MD 11/17/2024 01:49 PM EDT
[2024-11-17 10:13] VITALS: BP 103/57; PULSE 108; RESP 16; TEMP 38.1; O2SAT 97; BMI 24.0
[2024-11-17] MEDS: 0.9 % Sodium Chloride 1,000 ML 999 ML IV (11:26)
[2024-11-17] MEDS: Ketorolac Tromethamine 15 MG/ML VIAL IVPUSH (11:26)
[2024-11-17 11:28] VITALS: RESP 18
[2024-11-17] MEDS: HYDROmorphone HCl 1 MG/ML SYRINGE IVPUSH (11:28)
[2024-11-17] MEDS: Piperacillin Sodium/Tazobactam 3.375 GM in 0.9 % Sodium Chloride 50 ML IV (11:29)
[2024-11-17 11:37] VITALS: BP 116/57; PULSE 98; RESP 16; TEMP 37.2; O2SAT 98
[2024-11-17 11:38] LABS: MANUAL DIFF FLAG NO
[2024-11-17 11:41] LABS: Basophils Percent Auto 0.3 % (0-2); Hematocrit 36.9 % (42.0-52.0); Hemoglobin 12.5 g/dl (14.0-18.0); Imm Gran Abs Auto 0.06 X10*3/uL (0.00-0.03); Imm Gran Pct Auto 0.8 % (0.0-0.4); Lymphocytes Absolute Auto 0.8 X10*3/uL (1.2-4.9); Mean Corpuscular HGB Conc 33.9 g/dl (31.0-36.0); Mean Corpuscular Hemoglobin 30.1 pg (27.0-33.0); Mean Corpuscular Volume 88.9 fL (80.0-98.0); Mean Platelet Volume 9.5 fL (9.4-12.4); Monocytes Absolute Auto 0.8 X10*3/uL (0.1-1.2); Monocytes Percent Auto 10.8 % (2-11); Neutrophils Absolute Auto 5.7 x10*3/uL (2.0-8.3); Neutrophils Percent Auto 77.1 % (45-73); Platelet Count 481 X10*3/uL (160-400); Red Blood Count 4.15 X10*6/uL (4.60-5.80); White Blood Count 7.4 X10*3/uL (4.8-10.8)
--- NOTE | 2024-11-17 11:47 | ED_ITS ---
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 Sullivan HPI Narrative: 29-year-old male presented with left facial pain x2 weeks, patient was seen in the emergency department twice in the last 20 days for similar symptoms had 2 courses of amoxicillin with a diagnosis of dental caries, patient was seen by a dentist today and was sent here because unable to open his mouth, patient is complaining of 10/10 pain in the left jaw area, declined any trauma, no history of jaw joint dislocation in the past, no fever, no chills, no facial swelling. Had soft tissue neck on 11/02/2024 that showed no significant abnormalities. Related Data Previous Rx's ?Medication ?Instructions ?Recorded Lidoderm 5 % topical patch 1 patch topical DAILY #1 ea 05/04/20 (lidocaine) cyclobenzaprine 10 mg tablet 10 mg PO TID PRN muscle spasm #10 05/04/20 tabs acetaminophen 500 mg tablet 500 mg PO Q6H PRN pain #30 tabs 02/08/24 (Tylenol Extra Strength) ibuprofen 600 mg tablet 600 mg PO Q6H PRN pain #30 tabs 02/08/24 amoxicillin 875 mg-potassium 1 tab PO BID 7 days #14 tabs 10/29/24 clavulanate 125 mg tablet oxycodone 5 mg tablet 5 mg PO Q6H PRN pain #20 tabs 11/03/24 clindamycin HCl 300 mg capsule 300 mg PO TID #20 caps 11/17/24 Allergies Allergy/AdvReac Type Severity Reaction Status Date / Time No Known Allergies Allergy Verified 11/17/24 10:14 [No Known Allergies*] Review of Systems 2 Review of Systems: All other systems are reviewed and are negative Constitutional: Reports as per HPI and Reports no additional constitutional complaints Eyes: Reports as per HPI and Reports no additional eye complaints Reports system reviewed and no additional complaints, except as documented Cardiovascular: Reports as per HPI and Reports no additional cardiovascular complaints Respiratory: Reports as per HPI and Reports no additional respiratory complaints Gastrointestinal: Reports as per HPI and Reports no additional gastrointestinal complaints Genitourinary: Reports no additional female genitourinary complaints Musculoskeletal: Reports no additional musculoskeletal complaints Skin/Breast: Reports system reviewed and no additional complaints, except as docu Psychiatric: Reports no additional psychiatric complaints Endocrine: Reports no additional endocrine complaints Hematologic/Lymphatic: Reports no additional hematologic/lymphatic complaints Allergic/Immunologic: Reports no additional allergic/immunologic complaints Reports system reviewed and no additional complaints, except as documented and Reports Abnormal speech present [facility] Past Medical History Medical History No known health problems Surgical History No history of previous surgery Social History Social History Alcohol intake: never Smoked in Last 30 Days: No Use of substances other than those prescribed or required for medical reasons: No Advance Directives: No Advance Directives Information Provided: Yes Do you have a plan to hurt others: No Plan Physical Exam 2 Vital Signs: Vital Signs: Last Vital Signs Temp 98.9 F 11/17/24 11:37 Pulse 98 11/17/24 11:37 Resp 16 11/17/24 11:37 BP 116/57 L 11/17/24 11:37 Pulse Ox 98 11/17/24 11:37 O2 Del Method Room Air 11/17/24 11:37 BMI result Body Mass Index 24.0 Vital signs have been reviewed and appear to be correct. Blood pressure elevated. Heart rate normal. Respiratory rate normal. Temperature normal. Oxygen saturation normal. Appearance: Alert. Oriented X3. No acute distress. Mouth exam: Unable to do dental exam patient is unable to fully open the mouth feels like it is locked. Head: Normal external exam. Normocephalic. Atraumatic. No [place] signs noted. No raccoon eyes noted Eyes: PERRLA. EOMI. Conjunctiva and sclera normal. Eyelids normal. ENT: TM's Normal. Pharynx normal. Uvula midline. Moist mucous membranes. No trismus noted. No drooling noted. No muffled voice noted. Neck: Normal inspection. Neck supple. FROM. No adenopathy. Thyroid Normal. No meningeal signs. No neck mass noted. CVS: Normal heart rate and rhythm. Heart sound normal. No murmurs noted. Pulses normal throughout. Respiratory: No respiratory distress. Painless inspiration. Breath sounds normal. No wheezes/rales/rhonchi noted. Chest nontender. No accessory muscle usage noted or decreased air movement noted. Abdomen: Soft and nontender. Bowel sounds normal in all 4 quadrants. No distention noted. No organomegaly noted. No visible injury noted. Back: No CVA tenderness. Full range of motion noted. Skin: Skin warm and dry. Normal skin color. Normal skin turgor. No rashes/lesions/lacerations noted. Extremities: No lower extremity edema. Extremities exhibit normal range of motion. Extremities nontender. Neuro: Oriented X 3. Cranial nerve exam: II-XII are grossly intact No motor deficit. No sensory deficit. Reflexes normal. Course Reevaluation(s) Reevaluation #1: 29-year-old male with a dental infection unable to wide open his mouth secondary to infection and inflammatory changes around the tooth, CT of the face showed no jaw dislocation, and confirmed diagnosis of dental origin infection originated from tooth 18. Will change antibiotic to clindamycin patient has been taking 2 courses of amoxicillin without relief of his symptoms. Patient has an appointment with his dentist tomorrow was instructed to discuss with his dentist to do his procedure under general anesthesia where he can open his mouth. No sepsis. Time: 14:40 Medications Administered Discontinued Medications Generic Name Dose Route Start Last Admin Trade Name Nikunjq PRN Reason Stop Dose Admin Acetaminophen 975 mg 11/17/24 14:26 11/17/24 14:30 Acetaminophen 325 Mg Tablet PO 11/17/24 14:27 975 mg ONCE ONE Administration Hydromorphone HCl 1 mg 11/17/24 11:16 11/17/24 11:28 Hydromorphone Hcl 1 Mg/Ml Syringe IVPUSH 11/17/24 11:17 1 mg ONCE ONE Administration Protocol Piperacillin Sod/Tazobactam 50 mls @ 100 mls/hr 11/17/24 11:16 11/17/24 12:49 Sod 3.375 gm/ Sodium Chloride IV 11/17/24 11:45 Infused ONCE ONE Infusion Sodium Chloride 1,000 mls @ 999 mls/hr 11/17/24 11:18 11/17/24 12:49 Ns IV 11/17/24 12:18 Infused .Q1H1M ONE Infusion Ketorolac Tromethamine 15 mg 11/17/24 11:16 11/17/24 11:26 Ketorolac Tromethamine 15 Mg/Ml Vial IVPUSH 11/17/24 11:17 15 mg ONCE ONE Administration Medical Decision Making Differential Diagnosis Differential Diagnoses: The differential diagnosis associated with the presentation includes (Dental abscess, jaw dislocation, dental infection, gingivitis, airway patency.) Admission/Observation Consideration of admission/observation: Escalation of care including admission/observation considered Lab Data MDM Lab Attestation statement: I reviewed the patient's lab results. 11/17/24 11:27 11/17/24 11:27 Labs: Lab Results 11/17/24 Range/Units 11:27 WBC 7.4 (4.8-10.8) X10*3/uL RBC 4.15 L (4.60-5.80) X10*6/uL Hgb 12.5 L (14.0-18.0) g/dl Hct 36.9 L (42.0-52.0) % MCV 88.9 (80.0-98.0) fL MCH 30.1 (27.0-33.0) pg MCHC 33.9 (31.0-36.0) g/dl RDW 11.0 (11.0-16.0) % Plt Count 481 H D (160-400) X10*3/uL MPV 9.5 (9.4-12.4) fL Immature Gran % (Auto) 0.8 H (0.0-0.4) % Neut % (Auto) 77.1 H (45-73) % Lymph % (Auto) 11.0 L (20-40) % [place] % (Auto) 10.8 (2-11) % Eos % (Auto) 0.0 (0-4) % Baso % (Auto) 0.3 (0-2) % Lymph # (Auto) 0.8 L (1.2-4.9) X10*3/uL [place] # (Auto) 0.8 (0.1-1.2) X10*3/uL Eos # (Auto) 0.0 (0.0-0.4) X10*3/uL Baso # (Auto) 0.0 (0.0-0.2) X10*3/uL Abs Immat Gran (auto) 0.06 H (0.00-0.03) X10*3/uL Absolute Neuts (auto) 5.7 (2.0-8.3) x10*3/uL Absolute Nucleated RBC 0.000 (0.0-0.012) X10*3/uL Nucleated RBC % (auto) 0.0 (0.0-0.2) /100WBC Sodium 139 (135-145) mmol/L Potassium 4.2 (3.3-5.1) mmol/L Chloride 104 (96-108) mmol/L Carbon Dioxide 27 (22-29) mmol/L Anion Gap 12 (12-20) BUN 10 (9-16) mg/dL Creatinine 0.85 (0.5-1.4) mg/dL Estim Creat Clear Calc 111.5 Estimated GFR > 60 Random Glucose 93 (60-115) mg/dL Lactic Acid 0.8 (0.5-2.0) mmol/L Calcium 9.2 D (8.4-10.2) mg/dL Total Bilirubin 1.3 H (0.0-1.0) mg/dL AST 20 (5-37) U/L ALT 11 (0-40) U/L Alkaline Phosphatase 74 (39-117) U/L Total Protein 7.5 (6.5-8.0) g/dL Albumin 4.1 (3.5-5.0) g/dL Independent Interpretation I performed an independent interpretation of an: CT Scan (Face:1. There is no dislocation or malalignment of the TM joints. 2. There is soft tissue inflammation of the left submandibular region with thickening of the platysma, a reactive level 2A lymph node, and enlargement of the left pterygoid muscle. This appears to be secondary to a 9 mm buccal daniela) Radiology Impression Discussion of test interpretation with radiology: I have reviewed the radiologist's reading. Discharge Plan Discharge Clinical Impression: Dental caries, Dental infection Patient Disposition: Home, Self-Care Instructions: Gingivostomatitis (ED) Additional Instructions: Show your dentist that is CT result: 1. There is no dislocation or malalignment of the TM joints. 2. There is soft tissue inflammation of the left submandibular region with thickening of the platysma, a reactive level 2A lymph node, and enlargement of the left pterygoid muscle. This appears to be secondary to a 9 mm buccal cortex erosion/periapical lucency involving tooth #18. There are also carious lesions in this tooth. Cannot assess for subperiosteal abscess. Prescriptions: New clindamycin HCl 300 mg capsule 300 mg PO TID Qty: 20 0RF No Action cyclobenzaprine 10 mg tablet 10 mg PO TID PRN (Reason: muscle spasm) Qty: 10 0RF lidocaine [Lidoderm] 5 % adhesive patch,medicated 1 patch topical DAILY Qty: 1 0RF Rx Instructions: leave on most painful area for up to 12 hrs amoxicillin-pot clavulanate 875-125 mg tablet 1 tab PO BID 7 Days Qty: 14 0RF oxycodone 5 mg tablet 5 mg PO Q6H PRN (Reason: pain) Qty: 20 0RF Rx Instructions: Partial Fill upon patient request. ibuprofen 600 mg tablet 600 mg PO Q6H PRN (Reason: pain) Qty: 30 0RF acetaminophen [Tylenol Extra Strength] 500 mg tablet 500 mg PO Q6H PRN (Reason: pain) Qty: 30 0RF Print Language: Indonesian
[2024-11-17 12:00] LABS: Lactic Acid 0.8 mmol/L (0.5-2.0)
[2024-11-17 12:05] LABS: Alanine Aminotransferase 11 U/L (0-40); Albumin Level 4.1 g/dL (3.5-5.0); Alkaline Phosphatase 74 U/L (39-117); Anion Gap 12 (12-20); Aspartate Amino Transferase 20 U/L (5-37); Bilirubin Total 1.3 mg/dL (0.0-1.0); Blood Urea Nitrogen 10 mg/dL (9-16); Calcium 9.2 mg/dL (8.4-10.2); Carbon Dioxide 27 mmol/L (22-29); Chloride 104 mmol/L (96-108); Creatinine Clr Calc Pharmacy 111.5; Estimated Glomerular Filt Rate > 60; Glucose Random 93 mg/dL (60-115); Potassium 4.2 mmol/L (3.3-5.1); Sodium 139 mmol/L (135-145); Total Protein 7.5 g/dL (6.5-8.0)
--- OUTSIDE RECORDS SUMMARY | 2024-11-17 13:26 | XMS_ITS | Clinical Summary ---
Author Organization [employer] Address [address] [facility] [address] [place] [address] Care Team Providers Care Waste Oil Pumper Name Role Phone Unavailable Primary Care Provider Unavailabl e Encounters Date Type Department Care Team Description 11/02/2024 Orders Only GENERIC EXTERNAL DATA DEPARTMENT Provider, Generic External Data from Last 3 Months Social History Tobacco Use Types Packs/Day Years Used Date Smoking Tobacco: Never Assessed Sex and Gender Information Value Date Recorded Sex Assigned at Male 06/02/2022 10:39 AM EDT Legal Sex Male 10:39 AM EDT Gender Identity Male 06/02/2022 10:39 AM EDT Sexual Orientation Choose not to disclose 2021 10:39 AM EDT Plan of Treatment Health Maintenance Due Date Last Done Comments Depression Screening 1995 HIV Screening 1995 Alcohol/Substance Use Screening 2007 Tobacco Screening 2007 Family Planning (PISQ) 2010 Hepatitis C Screening 2013 DTaP/Tdap/Td Vaccines (1 - Tdap) 2014 Hepatitis B Vaccines (1 of 3 - 19+ 3-dose series) 2014 COVID-19 Vaccine (3 - 2023-2 5 season) 2024 03/28/2021, 03/07/2021 Influenza Vaccine (#1) 2024 09/09/2013 Zoster Vaccines (1 of 2) 2045 RSV Patients and Patients Aged 60 years or older (1 - 1-dose 75+ series) 2070 HIB Vaccines Aged Out No longer eligi ble based on patient's age to complete this topic HPV Vaccines Aged Out No longer eligi ble based on patient's age to complete this topic Hepatitis A Vaccines Aged Out No long er eligible based on patient's age to complete this topic IPV Vaccines Aged Out No longer eligi ble based on patient's age to complete this topic Meningococcal Vaccine Aged Out No prerna cisco eligible based on patient's age to complete this topic Pneumococcal Vaccine: Pediatrics (0 to 5 Years) and At-Risk Patients (6 to 49) Years) Aged Out No longer eligible b ased on patient's age to complete this topic RSV under 20 months Aged Out No longe r eligible based on patient's age to complete this topic Rotavirus Vaccines Aged Out No longer eligible based on patient's age to complete this topic Procedures Procedure Name Priority Date/Time Associated Diagnosis Comments CT SOFT TISSUE NECK W CONTRAST Routine 11/02/2024 9:29 PM EDT BASIC METABOLIC PANEL Routine 11/02/2024 7:47 PM EDT HEPATIC FUNCTION PANEL Routine 11/02/2024 7:47 PM EDT from Last 3 Months Results * CT Soft Tissue Neck w/ Contrast (11/02/2024 9:29 PM EDT) Anatomical Region Laterality Modality Head, Neck Computed Tomogra phy 11/02/2024 9:29 PM EDT Narrative 11/02/2024 9:31 PM EDT ? [facility] ?[address] ?[place] [address] ? CT Scan Report ? Signed ? Patient: Monae Miranda ?MR#: [id number] ?? [id number] ? : 1995 ?Acct:[id number] ? Age/Sex: 29 / M ?ADM Date: 11/02/24 ? Loc: HO.ED ? Attending Dr: ? Ordering Physician: Aleyda Henriquez ?? Date of Service: 11/02/24 ?? Procedure(s): CT soft tissue neck w IV con ?? Accession Number(s): [id number] ? cc: [facility]; Aleyda Henriquez ? Report Number: ?? [id number]: Total DLP = ??448.00 mGy-cm ? CLINICAL HISTORY: unable to open mouth, ??L lower dental pain ? CT soft tissue neck with contrast ? Comparison: None ? Findings: ? Tonsils, adenoids and epiglottis are within normal limits. ?? There is no prevertebral soft tissue swelling or fluid. ?? Bilateral parotid and submandibular glands unremarkable. ? No significant adenopathy in the neck by size criteria. ?? Airway midline without deviation or displacement. ?? No foreign bodies are demonstrated. ? Visualized upper lungs and sinuses are clear. ?? No acute bony abnormalities demonstrated. ? Impression: ? No significant abnormalities. ? This document has been electronically signed by: Gagan Guillory MD on ?? 11/02/2024 21:29:58 ? Dictated By: ?Gagan Guillory MD ? Signed By: ?<Electronically signed by Gagan Guillory MD in OV> ? 11/02/242129 ? DD/ 28 ? TD/TT: 11/02/242128 ? Highway Commissioner: ? Procedure Note Dontimmy, Image - 11/04/[address] [place] [address] [address] Scan Report Signed Patient: Bruce Miranda#: [id number] : 1995Acct:[id number] Age/Sex: Date: 11/02/24 Loc: HO.ED Attending Dr: Ordering Physician: Aleyda Henriquez Date of Service: 11/02/24 Procedure(s): CT soft tissue neck w IV con Accession Number(s): [id number] cc: [facility]; Aleyda Henriquez Report Number: [id number]: Total DLP = 448.00 mGy-cm CLINICAL HISTORY: unable to open mouth, L lower dental pain CT soft tissue neck with contrast Comparison: None Findings: Tonsils, adenoids and epiglottis are within normal limits. There is no prevertebral soft tissue swelling or fluid. Bilateral parotid and submandibular glands unremarkable. No significant adenopathy in the neck by size criteria. Airway midline without deviation or displacement. No foreign bodies are demonstrated. Visualized upper lungs and sinuses are clear. No acute bony abnormalities demonstrated. Impression: No significant abnormalities. This document has been electronically signed by: Gagan Guillory MD on 11/02/2024 21:29:58 Dictated By: Gagan Guillory MD Signed By: <Electronically signed by Gagan Guillory MD in OV> 11/02/242129 DD/ 28 TD/TT: 11/02/242128 Highway Commissioner: [facility] External Provider IMG CT PROCEDURES Edited Result - Final * (ABNORMAL) Hepatic Function Panel (11/02/2024 7:47 PM EDT) Pathologist [facility] [place] Bilirubin, Total 1.0 0.0 - 1.0 mg/dL [facility] Bilirubin, Direct 0.3 0.0 - 0.5 mg/dL [facility] Aspartate Amino Transferase 27 5 - 37 U/L [facility] Alanine Aminotransferase 34 0 - 40 U/L [facility] Total Protein 8.2(H) 6.5 - 8.0 g/dL [facility] Albumin Level 4.5 3.5 - 5.0 g/dL [facility] Alkaline Phosphatase 84 39 - 117 U/L [facility] 11/02/2024 7:47 PM EDT 11/02/2024 7:56 PM EDT Generic External Data Provider LAB BLOOD ORDERAB LES Final Result [facility] [address] [place] [phone] * (ABNORMAL) Basic Metabolic Panel (11/02/2024 7:47 PM EDT) Pathologist [facility] [place] Sodium 140 135 - 145 mmol/L [facility] Potassium 4.8 3.3 - 5.1 mmol/L [facility] Chloride 106 96 - 108 mmol/L [facility] Carbon Dioxide 26 22 - 29 mmol/L [facility] Anion Gap 13 12 - 20 [facility] Urea Nitrogen (BUN) 8(L) 9 - 16 mg/dL [facility] Creatinine, Serum 0.58 0.5 - 1.4 mg/dL [facility] Creatinine Clr Calc Pharmacy 163.4 [facility] Comment:eGFR (calculated fro m the MDRD study equation) and eCrCl(calculated from the Cockcroft-Gault equation) are based ondifferent parameters and may not yield comparable results.If eCrCl result is absurd, please check patient'sheight/weight. Estimated Glomerular Filt Rate >60 [facility] Comment:Chronic Kidney Disea se: Estimated GFR < 60 mL/min/1.39v5Vkekno Kidney Disease: Estimated GFR < 15 mL/min/1.73m2 Glucose 95 60 - 115 mg/dL [facility] Calcium 10.4(H) 8.4 - 10.2 mg/dL [facility] 11/02/2024 7:47 PM EDT 11/02/2024 7:56 PM EDT us Generic External Data Provider LAB BLOOD ORDERAB LES Final Result [facility] [address] [place] [address] [phone] from Last 3 Months
--- NOTE | 2024-11-17 14:26 | PC.NURSE ---
Pt requesting PO intake. MD dias, juice given at this time.
[2024-11-17] MEDS: Acetaminophen 325 MG TABLET 975 MG PO (14:30)
[2024-11-17 15:04] VITALS: BP 162/72; PULSE 91; RESP 18; TEMP 37.1; O2SAT 100
== END 2024-11-17 15:05 | disposition home or self-care (01) ==
PROVIDERS: Emergency Provider Emergency Medicine
DX: K02.9 Dental caries, unspecified (principal); K04.7 Periapical abscess without sinus; K08.89 Other specified disorders of teeth and supporting structures; Z79.899 Other long term (current) drug therapy
CPT/HCPCS: 36415; 70486; 80053; 83605; 85025; 87040; 96361; 96374; 96375; 99284; 99285; J1171; J1885; J2543

== ENCOUNTER → 2024-11-17 11:53 | Outpatient (BNV) | payer MEDICAID, SELFPAY | PROVIDERS: Emergency Provider Emergency Medicine; Visit Provider Radiology Diagnostic Radiology | DX: M79.89 Other specified soft tissue disorders (principal); R22.0 Localized swelling, mass and lump, head | CPT/HCPCS: 70486 ==

== ENCOUNTER 2025-04-14 13:34 | Outpatient (REF) | payer MEDICAID, SELFPAY ==
--- OUTSIDE RECORDS SUMMARY | 2025-04-14 13:00 | XMS_ITS | Encounter Summary ---
Author Organization [employer] Address [address] [facility] [address] [place] [address] Care Team Providers Care Leather Production Machine Operator Name Role Phone Jeanne Hidalgo MD Primary Care Provider [phone] Reason for Visit * Reason Comments new pt Encounter Details Date Type Department Care Team ([facility] st Contact Info) Description 04/14/2025 1:00 PM EDT Office Visit [facility] [address] [place], [place] [phone] Jeanne Hidalgo MD [address] [place], [place] [phone] Screening examination for STI (Primary Dx); Dietary counseling; Exercise counseling; Overweight; Encounter for immunization Social History Tobacco Use Types Packs/Day Years Used Date Smoking Tobacco: Never Smokeless Tobacco: Never Depression Answer Date Recorded Patient Health Questionnaire-9 Score 0 04/14/2025 Patient Health Questionnaire-9 Score 0 04/14/2025 Last PHQ-9: Questionnaire Data Not on file 0 04/14/2025 Housing Stability Answer Date Recorded What is your housing situation today? I have terranceapollo acuna 04/07/[address] you li ve. Do you have problems with any of the following? None of the above 04/07/2025 Food Insecurity Answer Date Recorded Within the past 12 months, y ou worried that your food would run out before you got money to buy more: Never True 04/07/2025 Within the past 12 months,th e food you bought just didn't last and you didn't have enough money to get more: Never True 12/2024 Transportation Answer Date Recorded In the past 12 months, has l ack of transportation kept you from medical appts, meetings, work or from getting things needed for daily living? No 04/07/2025 Utilities Answer Date Recorded In the past 12 months, has t he electric, gas, oil or water company threatened to shut off services in your home? No 04/07/2025 Depression Answer Date Recorded Patient Health Questionnaire-2 Score 0 04/14/2025 Internet Access Answer Date Recorded Internet Access Q1 Yes 04/07/2025 Internet Access Q2 Not on file 04/07/2025 Sex and Gender Information Value Date Recorded Sex Assigned at Male 06/02/2022 10:39 AM EDT Legal Sex Male 10:39 AM EDT Gender Identity Male 06/02/2022 10:39 AM EDT Sexual Orientation Choose not to disclose 2021 10:39 AM EDT documented as of this encounter Last Filed Vital Signs Vital Sign Reading Time Taken Comments Blood Pressure 118/70 04/14/2025 1:06 PM EDT Pulse 80 04/14/2025 1:06 PM EDT Temperature 36.1 C (97 F) 04/14/2025 1:06 PM EDT Respiratory Rate 22 04/14/2025 1:06 PM EDT Oxygen Saturation - - Inhaled Oxygen Concentration - - Weight 72.2 kg (159 lb 3.2 oz) 04/14/2025 1:06 P M EDT Height 162.6 cm (5' 4 ) 04/14/2025 1:06 PM EDT Body Mass Index 27.33 04/14/2025 1:06 PM EDT documented in this encounter Functional Status * Over the past 2 weeks, how often have you been bothered by any of the following problems? Question Answer Date of Assessment Author Patient Health Questionnaire -2 Score 0 04/14/2025 2:44 PM EDT Lissette Ayoub MA * Little interest or pleasure in doing things Answer Date of Assessment Author Not at all 04/14/2025 2:44 PM EDT Lissette Ayoub MA * Feeling down, depressed, or hopeless Answer Date of Assessment Author Not at all 04/14/2025 2:44 PM EDT Lissette Ayoub MA * Trouble falling or staying asleep, or sleeping too much Answer Date of Assessment Author Not at all 04/14/2025 2:44 PM EDT Lissette Ayoub MA * Feeling tired or having little energy Answer Date of Assessment Author Not at all 04/14/2025 2:44 PM EDT Lissette Ayoub MA * Poor appetite or overeating Answer Date of Assessment Author Not at all 04/14/2025 2:44 PM THOMAST Lissette Ayoub MA * Feeling bad about yourself - or that you are a failure or have let yourself or your family down Answer Date of Assessment Author Not at all 04/14/2025 2:44 PM EDT Lissette Ayoub MA * Trouble concentrating on things, such as reading the newspaper or watching television Answer Date of Assessment Author Not at all 04/14/2025 2:44 PM EDT Lissette Ayoub MA * Moving or speaking so slowly that other people could have noticed? Or the opposite - being so fidgety or restless that you have been moving around a lot more than usual. Answer Date of Assessment Author Not at all 04/14/2025 2:44 PM EDT Lissette Ayoub MA * Thoughts that you would be better off or hurting yourself in some way Answer Date of Assessment Author Not at all 04/14/2025 2:44 PM EDT Lissette Ayoub MA * Patient Health Questionnaire-9 Score Answer Date of Assessment Author 0 04/14/2025 2:44 PM THOMAST Lissette Ayoub MA * Over the last 2 weeks, how often have you been bothered by any of the following problems? Question Answer Date of Assessment Author Feeling nervous, anxious, or on edge 0 04/14/2025 2:44 PM EDT Lissette Ayoub MA Not being able to stop or co ntrol worrying 0 04/14/2025 2:44 PM EDT Lissette Ayoub MA Worrying too much about diff erent things 0 04/14/2025 2:44 PM EDT Lissette Ayoub MA Trouble relaxing 0 04/14/2025 2:44 PM EDT Lissette Blandon MA Being so restless that it is hard to sit still 0 04/14/2025 2:44 PM THOMAST Lissette Ayoub MA Becoming easily annoyed or irritable 0 04/14/2025 2:44 PM EDT Lissette Ayoub MA Feeling afraid as if somethi ng awful might happen 0 04/14/2025 2:44 PM EDT Lissette Ayoub MA JOSH-7 Total Score 0 04/14/2025 2:44 PM EDT Lissette Ayoub MA documented as of this encounter Plan of Treatment Upcoming Encounters Date Type Department Care Team (Late st Contact Info) Description 09/21/2025 9:30 AM EST Office Visit [facility] [address] [place] [address] Thalia Marcus, OD [address] [place] [address] Scheduled Orders Name Type Priority Associated Diagnoses Orde r Schedule Lipid Panel, Standard Lab Routine Overweight Expected: 04/14/2025 (Approximate), Expires: 04/14/2026 Comprehensive Metabolic Panel Lab Routine Overweight Expected: 04/14/2025 (Approximate), Expires: 04/14/2026 Hemoglobin A1c Lab Routine Overweight Expected: 04/14/2025 (Approximate), Expires: 04/14/2026 TSH W/Reflex to FT4 Lab Routine Overweight Expected: 04/14/2025 (Approximate), Expires: 04/14/2026 Chlamydia/N. Gonorrhoeae RNA, TMA, Urogenitial Microbiology Routine Screening examination for STI Expected: 04/14/2025 (Approximate), Expires: 04/14/2026 HIV-1/2 Antigen and Antibodies, Fourth Generation, with Reflexes Lab Routine Screening examination for STI Expected: 04/14/2025 (Approximate), Expires: 04/14/2026 Hepatitis C Antibody with Reflex to HCV, RNA, Quantitative, Real-Time PCR Lab Routine Screening examination for STI Expected: 04/14/2025, Expires: 04/14/2026 RPR (Monitor) with Reflex to Titer Lab Routine Screening examination for STI Expected: 04/14/2025, Expires: 04/14/2026 documented as of this encounter Visit Diagnoses Diagnosis Screening examination for STI- Primary Dietary counseling Dietary surveillance and counseling Exercise counseling Overweight Encounter for immunization documented in this encounter Additional Health Concerns Assessment Noted Time PHQ-9 Depression Total Score: 0 04/14/20 25 2:44 PM EDT documented as of this encounter Care Teams Leather Production Machine Operator Relationship Specialty Start Date End Date Jeanne Hidalgo MD [address] [place] [address] PCP - General Family Medicine 04/14/25 documented as of this encounter
--- OUTSIDE RECORDS SUMMARY | 2025-04-14 16:25 | XMS_ITS | Encounter Summary ---
Author Organization [employer] Address [address] [facility] [address] [place] [address] Care Team Providers Care Nonprofit Manager Name Role Phone Jeanne Hidalgo MD Primary Care Provider [phone] Encounter Details Date Type Department Care Team (Latest Contact Info) Description 04/14/2025 Travel Social History Tobacco Use Types Packs/Day Years Used Date Smoking Tobacco: Never Smokeless Tobacco: Never Depression Answer Date Recorded Patient Health Questionnaire-9 Score 0 04/14/2025 Patient Health Questionnaire-9 Score 0 04/14/2025 Last PHQ-9: Questionnaire Data Not on file 0 04/14/2025 Housing Stability Answer Date Recorded What is your housing situation today? I have terrance acuna 04/07/[address] you [...] AM EDT documented as of this encounter Functional Status * Over the [...] of Assessment Author 0 04/14/2025 2:44 PM EDT Lissette Ayoub MA * Over the last [...] to sit still 0 04/14/2025 2:44 PM EDT Lissette Ayoub MA Becoming easily annoyed or [...] Description 09/21/2025 9:30 AM EST Office Visit [facility] [address] [place] [address] Thalia Marcus, OD [address] [place] [address] documented as of this encounter Visit Diagnoses Not on filedocumented in this encounter Additional Health Concerns Assessment Noted Time PHQ-9 Depression Total Score: 0 04/14/20 25 2:44 PM EDT documented as of this encounter Care Teams Nonprofit Manager Relationship Specialty Start Date End Date Jeanne Hidalgo MD [address] [place] [address] PCP - General Family Medicine 04/14/25 documented as of this encounter
--- OUTSIDE RECORDS SUMMARY | 2025-04-14 16:25 | XMS_ITS | Clinical Summary ---
Author Organization [employer] [facility] Address [address] [facility] 7t [place] [address] Care Team Providers Care Clinical Application Consultant Name Role Phone Jeanne Hidalgo MD Primary Care Provider [phone] Allergies No known active allergies Medications No known medications Active Problems Problem Noted Date Diagnosed Date Vision screen with abnormal findings 03/20/2025 Assessment & Plan (03/20/2025 1:10 PM EDT): Hx of eyes surgery as child, persistent right eye blurriness despite correction, Now with headaches secondary to eye strain Referrals to optometry and ophthalmology Encounters Date Type Department Care Team Description 04/14/2025 1:00 PM EDT Office Visit [facility] [address] [place] [phone] Jeanne Hidalgo MD Screening examination for STI (Primary Dx); Dietary counseling; Exercise counseling; Overweight; Encounter for immunization 04/14/2025 Travel 04/13/2025 Telephone [facility] [address] [place] [phone] Jeanne Hidalgo MD chart prep 04/07/2025 Patient Outreach [facility] [address] [place] [address] Jeanne Hidalgo MD Pre-visit Planning (SDOH negative, Tobacco screening negative. ) 04/07/2025 Travel 03/20/2025 1:00 PM EDT Office Visit [facility] [address] [place] [phone] Ronda Hermosillo NP Vision screen with abnormal findings (Primary Dx) 03/20/2025 Travel from Last 3 Months Immunizations Immunization Administration Dates Next Due Influenza, IIV3, injectable 09/09/2013 Tdap 04/14/2025 Social History Tobacco Use Types Packs/Day Years [...] not to disclose 2021 10:39 AM EDT Last Filed Vital Signs Vital Sign Reading Time Taken Comments Blood Pressure 118/70 04/14/2025 1:06 PM EDT Pulse 80 04/14/2025 1:06 PM EDT Temperature 36.1 C (97 F) 04/14/2025 1:06 PM EDT Respiratory Rate 22 04/14/2025 1:06 PM EDT Oxygen Saturation 98% 03/20/2025 12:54 PM EDT Inhaled Oxygen Concentration - - Weight 72.2 kg (159 lb 3.2 oz) 04/14/2025 1:06 P M EDT Height 162.6 cm (5' 4 ) 04/14/2025 1:06 PM EDT Body Mass Index 27.33 04/14/2025 1:06 PM EDT Plan of Treatment Upcoming Encounters Date Type Department Care Team (Late st Contact Info) Description 09/21/2025 9:30 AM EST Office Visit [facility] [address] [place] [address] Thalia Marcus, OD [address] [place] [address] Health Maintenance Due Date Last Done Comments HIV Screening 1995 Family Planning (PISQ) 2010 HPV Vaccines (1 - Male 3-dos e series) 2010 Hepatitis C Screening 2013 Hepatitis B Vaccines (1 of 3 - 19+ 3-dose series) 2014 COVID-19 Vaccine (3 - 2024-2 6 season) 2025 03/28/2021, 03/07/2021 Influenza Vaccine (#1) 2025 09/09/2013 Disability Screening 04/07/2026 04/07/2025 SDOH Screening 04/07/2026 04/07/2025 Alcohol/Substance Use Screening 04/14/2026 04/14/2025 Depression Screening 04/14/2026 04/14/2025, 04/14/2025 Tobacco Screening 04/14/2026 04/14/2025 DTaP/Tdap/Td Vaccines (2 - T d or Tdap) 04/14/2035 04/14/2025 Zoster Vaccines (1 of 2) 2045 RSV [...] patient's age to complete this topic Meningococcal B Vaccine Aged Out No l onger eligible based on patient's age to complete this topic Meningococcal Vaccine Aged Out No prerna cisco eligible based on patient's age to complete this topic Pneumococcal Vaccine: Pediatrics (0 to 5 Years) and At-Risk Patients (6 to 49) Years Aged Out No longer eligible b ased on patient's age to complete this topic RSV under 20 months Aged Out No longe r eligible based on patient's age to complete this topic Rotavirus Vaccines Aged Out No longer eligible based on patient's age to complete this topic Insurance [facility] C3 Care Teams Clinical Application Consultant Relationship Specialty Start Date End Date Jeanne Hidalgo MD [address] [place] [address] [place] [address] PCP - General Family Medicine 04/14/25
--- OUTSIDE RECORDS SUMMARY | 2025-04-14 16:25 | XMS_ITS | Encounter Summary ---
Author Organization [employer] Address [address] [place] [address] Care Team Providers Care Water Chemist Name Role Phone Unavailable Primary Care Provider Unavailabl e Reason for Visit * Reason Onset Date Comments chart prep 04/13/2025 Encounter Details Date Type Department Care Team (Late st Contact Info) Description 04/13/2025 Telephone [facility] [address] [place] [address] eJanne Hidalgo MD [address] [place], [place] [phone] chart prep Social History Tobacco Use Types Packs/Day Years Used Date Smoking Tobacco: Never Assessed Depression Answer Date Recorded Patient Health Questionnaire-9 [...] AM EDT documented as of this encounter Miscellaneous Notes * Telephone Encounter - Lissette Ayoub MA - 04/13/2025 12:47 PM EDT Chart Prep Labs: not applicable Images: done Referrals: complete Vaccines due: Covid, Flu, HPV, and DTAP Screenings: not applicable Overdue care gaps: SBIRT, PHQ-9, JOSH-7, and Tobacco documented in this encounter Plan of Treatment Upcoming Encounters Date Type Department Care Team (Late st Contact Info) Description 09/21/2025 9:30 AM EST Office Visit [facility] [address] [place] [address] Thalia Marcus OD [address] [place] [address] documented as of this encounter Visit Diagnoses Not on filedocumented in this encounter
[2025-04-14 16:28] LABS: Hemoglobin A1C 85.5411 umol/L; Total Hemoglobin (HGBA1C) 3947.1087 umol/L
[2025-04-14 16:38] LABS: Alanine Aminotransferase 28 U/L (0-40); Albumin Level 5.1 g/dL (3.5-5.0); Alkaline Phosphatase 74 U/L (39-117); Anion Gap 13 (12-20); Aspartate Amino Transferase 26 U/L (5-37); Blood Urea Nitrogen 15 mg/dL (9-16); Calcium 10.1 mg/dL (8.4-10.2); Carbon Dioxide 29 mmol/L (22-29); Chloride 104 mmol/L (96-108); Cholesterol 161 mg/dL (<200); Estimated Glomerular Filt Rate > 60; HDL Cholesterol 41 mg/dL (>40); Potassium 4.9 mmol/L (3.3-5.1); Sodium 141 mmol/L (135-145); Total Protein 8.2 g/dL (6.5-8.0); Triglycerides 85 mg/dL (<150)
== END 2025-04-14 13:35 | disposition home or self-care (01) ==
LOC: HO.HHCL 13:34
PROVIDERS: PCP General Practice; Visit Provider General Practice
DX: E66.3 Overweight (principal)
CPT/HCPCS: 36415; 80053; 80061; 83036; 84443

== ENCOUNTER 2025-04-20 09:28 | Outpatient (REF) | payer MEDICAID, SELFPAY ==
[2025-04-20 12:30] LABS: HIV Num 1 0.06 S/CO (0.00-0.99); ~HepC Num1 0.12 S/CO (0.00-0.79); ~Hepatitis C Antibody Nonreactive (Nonreactive)
== END 2025-04-20 09:29 | disposition home or self-care (01) ==
LOC: HO.HHCL 09:28
PROVIDERS: PCP General Practice; Visit Provider General Practice
DX: Z11.3 Encounter for screening for infections with a predominantly sexual mode of transmission (principal); Z11.4 Encounter for screening for human immunodeficiency virus [HIV]; Z11.59 Encounter for screening for other viral diseases
CPT/HCPCS: 36415; 86592; 86803; 87389

== ENCOUNTER → 2025-05-23 12:55 | Outpatient (BNVA) | payer SELFPAY | PROVIDERS: PCP General Practice; Visit Provider Physician Assistant Medical | DX: Z02.79 Encounter for issue of other medical certificate (principal) ==

== ENCOUNTER 2025-07-12 08:38 | Outpatient (AMB) | payer MEDICAID, SELFPAY ==
--- NOTE | 2025-07-12 08:54 | A.OFFVIS_ITS ---
Intake Visit Reasons: Male circumcision consult Intake Note: Patient is present for MALE CIRCUMCISION CONSULT Urology Medication:NONE Antibiotic Allergy:NONE Blood Thinner:NONE Skin Therapist Required: No Allergies No Known Allergies (No Known Allergies*) Allergy (Verified 07/12/25 09:37) Medication List - Last Reconciled 07/12/25 by CHRISTEN Escalante No Known Home Meds HPI Comments Details: Monae is a very pleasant 30-year-old again male patient of Dr. Hidalgo. He presents to the office today as a new patient for recurrent balanitis. In discussion with the patient today he reports noting irritation to the gland if his penis in discussing this with his PCP at which time recommendations were made for urology referral for further assessment evaluation. In assessment of the patient today upon retraction of penile foreskin it does appear mildly irritated at the coronal gland otherwise no open areas, lesions, and or drainage noted throughout the area. We did discuss proper care. We discussed further treatment options of balanitis and risks and benefits of these treatment options. He otherwise denies any bothersome urinary issues. He denies urinary urgency, urinary frequency, incontinence, nocturia, hematuria, dysuria, foul smelling urine, changes to urinary stream, flank pain, fever, and or chills. He is happy with his current voiding parameters. All questions were answered. He otherwise offers no other issues or concerns at this time. [facility] Medical History No known health problems Surgical History No history of previous surgery Social History Alcohol intake: never Review of Systems Const All systems reviewed & are unremarkable except as noted in HPI and below Physical Exam Const General: cooperative, healthy appearing, comfortable, no acute distress, well developed, alert and awake Orientation/consciousness: patient oriented x3 Limitations: no limitations HEENT Head: Yes normal to inspection, Yes normocephalic and Yes atraumatic Ears: hearing grossly normal bilaterally Eyes General: appearance normal, both eyes and all related structures Neck Neck: Yes normal visual inspection and Yes trachea midline Chest Chest palpation & inspection: normal inspection of the chest Resp Effort & Inspection: normal respiratory effort and able to speak in complete sentences Cardio Rate: regular rate GI Inspection: Yes normal to inspection General: Yes no CVA tenderness Back/Spine/Pelvis Back: no CVA tenderness Skin General skin exam: no rashes or lesions noted Neuro General: patient oriented x3 Extrem General: Yes normal to inspection Psych Appearance: grossly normal and well kempt Mental Status: mental status grossly normal Speech and movement: Normal speech and movement present and Clear speech present Affect: normal affect Attitude: cooperative Thought process: Normal thought process present Thought content: Normal thought content present Insight: Fair insight present (Psych) Judgement: Fair judgement present (Psych) Assessment & Plan Assessment & Plan (1) Balanitis: Code(s): N48.1 - Balanitis Category: Medical (2) Encounter for standard circumcision: Code(s): Z41.2 - Encounter for routine and ritual male circumcision Category: Medical Plan: Risks, benefits and alternatives to therapy were discussed. These include but are not limited to infection, bleeding, damage to local organs and tissues, need for further interventions. ? Anesthetic risks regarding cardiac arrhythmia, blood clots, and potential mortality were discussed. The patient understands the typical recovery time and the outpatient nature of the procedure. After consideration of these risks the patient gives full informed consent and they wish to move ahead with the procedure. Plan We discussed recurrent balanitis as well as further treatment options and risks and benefits of these treatment options. Patient would like to proceed with circumcision. Information provided regarding circumcision. He denies any bothersome urinary issues. He reports be happy with current voiding parameters. Will schedule for circumcision. Follow-up per doctor's orders; or sooner with any issues, concerns, and or questions. Patient Instructions: The patient had an opportunity to ask questions regarding the treatment plan. All questions were answered. Physical exam, labs, and imaging were discussed and reviewed in detail. As well as risks, benefits, and discussion of treatment choices. No major barriers to understanding were identified. The patient expressed understanding and agreement with the above treatment plan. The patient was made aware they should contact our office by phone for worsening of their current condition, the appearance of new symptoms, or with any questions or concerns. Compliance is encouraged with any medications and follow up testing that is ordered. It is a privilege to be allowed the opportunity to participate in? your urological care.? Again, if you have any questions or concerns If you have any questions or concerns please do not hesitate to contact me. The office is [phone]. This note is constructed using voice recognition software. While every effort has been made to ensure accuracy forming operator errors may have been included. Yours sincerely, CHRISTEN Escalante Coding Level of Care Code New Pt Level 4 (63080) Diagnoses Balanitis N48.1 Encounter for standard circumcision Z41.2
== END 2025-07-12 10:07 | disposition home or self-care (01) ==
LOC: HO.HUSH 08:38
PROVIDERS: PCP General Practice; Visit Provider Nurse Practitioner Family
DX: N48.1 Balanitis (principal); Z41.2 Encounter for routine and ritual male circumcision
CPT/HCPCS: 99204

== ENCOUNTER → 2025-07-12 08:38 | Outpatient (BNVA) | payer MEDICAID, SELFPAY | PROVIDERS: PCP General Practice; Visit Provider Nurse Practitioner Family | DX: Z41.2 Encounter for routine and ritual male circumcision (principal); N48.1 Balanitis | CPT/HCPCS: 99212 ==